=== PATIENT | male | born 1955 | race Caucasian/White ===

== ENCOUNTER 2018-09-07 17:37 | Inpatient (IN) | payer MEDICARE, MEDICAID ==
--- NOTE | 2018-09-07 18:22 | ED Physician Chart ---
ED Chief Complaint/HPI - Patient Information Date Seen:: 09/07/18 Time Seen:: 18:00 Chief Complaint:: Abdominal pain. History of Present Illness:: Pt came in by private auto because of onset of abdominal pain since about 0430 today. Pain is characterized as sharp, intermittent, located at R flank with radiation to R groin. No gross hematuria, dysuria, urinary frequency and urgency. Pain can be improved with urination. No known aggravating factor. No fever. No N//V/D. Last BM at about 3 pm today that was normal in color/ consistency. No hematochezia or melena. Allergies:: Allergies Allergy/AdvReac Type Severity Reaction Status Date / Time No Known Allergies Allergy Verified 09/07/18 17:48 Vitals:: Vital Signs - 8 hr 09/07/18 17:37 Temp 99.5 F HR 95 RR 16 BP 123/69 O2 Sat % 98 Historian:: Patient Family MD/PCP:: Dr. Hidalgo. LMP:: N/A Review:: Nurse's Note Reviewed ED Review of Systems - Review of Systems General/Constitutional: No fever, No chills, No weakness, No edema, No loss of appetite Skin: No skin lesions, No rash, No bruising Head: No headache, No light-headedness Eyes: No loss of vision, No pain ENT: No earache, No nasal drainage, No sore throat Neck: No neck pain, No swelling, No thyromegaly, No stiffness, No mass noted Cardio Vascular: No chest pain Pulmonary: No SOB, No cough, No wheezing GI: No nausea, No vomiting, No diarrhea, Pain, No melena, No hematochezia, No hematemesis G/U: No dysuria, No frequency, No hematuria Musculoskeletal: No bone or joint pain, No back pain Endocrine: No polyuria, No polydipsia Psychiatric: No prior psych history Hematopoietic: No bruising, No lymphadenopathy Neurological: No syncope, No focal symptoms, No weakness, No paresthesia, No headache, No confusion ED Past Medical History - Past Medical History Past Medical History: HTN Family History: Diabetes Melitus (in mother), Cancer (in father) Social History: Smoker (Pt has been informed about health risks associated with tobacco use and has been advised to stop. Pt has been encouraged to enroll in a smoking cessation program. Pt acknowledges understanding.), Alcohol (occasional) , Illicit Drug Use (occasional marijuana use.), , Other (lives with his friend.) Employment:: Retired. Surgical History: other (Surgical repair for right radial fracture in '08) Medication: Reviewed Family Medical History - Family Member Mother History Unknown: Yes ED Physical Exam - Physical Examination General/Constitutional: Awake, Well-developed, well-nourished (male), Alert, No distress, Non-toxic appearing, Ambulatory Other Gen/Cons comments:: Breathes comfortably, speaks clearly, and interacts appropriately. Head: Atraumatic Eyes: Lids, conjuctiva normal, PERRL, EOMI Skin: No ecchymosis, Well hydrated, No lymphadenopathy ENMT: External ears, nose nl, Nasal exam nl, Oropharynx nl Neck: Nontender, Full ROM w/o pain, No nuchal rigidity, No mass Respiratory: Nl effort/Exclusion, Clear to Auscultation, No Wheeze/Rhonchi/Rales Cardio Vascular: No murmur, gallop, rubs, Carotid/Femoral/Distal pulses equal bilaterally GI: No organomegaly, No hernia, Normal BS's, Nondistended, No mass/bruits, No McBurney tenderness Other GI comments:: Vague discomfort at R flank. : No CVA tenderness Extremities: No edema Neuro/Psych: Alert/oriented (oriented x 3), Judgement/insight normal, Mood normal, Normal gait, No focal deficits ED Labs/Radiology/EKG Results - Lab Results Results: Laboratory Results - last 24 hr 09/07/18 09/07/18 09/07/18 18:50 18:50 18:50 WBC 16.8 H RBC 4.57 Hgb 13.5 Hct 40.7 L MCV 89.0 MCH 29.5 MCHC Differential 33.2 RDW 13.2 Plt Count 339 MPV 6.5 Add Manual Diff YES Band Neutrophils % 0 Neutrophils (Manual) 89 H Lymphocytes 6 L Monocytes 5 Eosinophils 0 Basophils 0 Platelet Estimate ADEQUATE PT 11.5 INR 1.12 PTT (Actin FS) 32.0 Sodium 137 Potassium 4.0 Chloride 100 Carbon Dioxide 29.7 Anion Gap 11.3 BUN 21 Creatinine 1.1 Est GFR ( Amer) > 60.0 Est GFR (Non-Af Amer) > 60.0 BUN/Creatinine Ratio 19.1 Glucose 132 H Calcium 9.0 Total Bilirubin 0.8 AST 11 L ALT 11 Alkaline Phosphatase 57 Total Protein 6.6 Albumin 3.6 L Globulin 3.0 Albumin/Globulin Ratio 1.2 Amylase 53 Lipase 5 L Laboratory Last Values WBC 16.8 Th/cmm (4.8-10.8) H 09/07/18 18:50 RBC 4.57 Mil/cmm (3.80-5.80) 09/07/18 18:50 Hgb 13.5 gm/dL (12-16) 09/07/18 18:50 Hct 40.7 % (41.0-60) L 09/07/18 18:50 MCV 89.0 fl (80-99) 09/07/18 18:50 MCH 29.5 pg (27.0-31.0) 09/07/18 18:50 MCHC Differential 33.2 pg (28.0-36.0) 09/07/18 18:50 RDW 13.2 % (11.5-20.0) 09/07/18 18:50 Plt Count 339 Th/cmm (150-400) 09/07/18 18:50 MPV 6.5 fl 09/07/18 18:50 Add Manual Diff YES 09/07/18 18:50 Band Neutrophils % 0 % (0-10) 09/07/18 18:50 Neutrophils (Manual) 89 % (40-80) H 09/07/18 18:50 Lymphocytes 6 % (20-50) L 09/07/18 18:50 Monocytes 5 % (2-10) 09/07/18 18:50 Eosinophils 0 % (0-5) 09/07/18 18:50 Basophils 0 % (0-3) 09/07/18 18:50 Platelet Estimate ADEQUATE (NORMAL) 09/07/18 18:50 PT 11.5 SECONDS (9.5-11.5) 09/07/18 18:50 INR 1.12 (0.5-1.4) 09/07/18 18:50 PTT (Actin FS) 32.0 SECONDS (26.0-38.0) 09/07/18 18:50 Sodium 137 mEq/L (136-145) 09/07/18 18:50 Potassium 4.0 mEq/L (3.5-5.1) 09/07/18 18:50 Chloride 100 mEq/L (98-107) 09/07/18 18:50 Carbon Dioxide 29.7 mEq/L (21.0-31.0) 09/07/18 18:50 Anion Gap 11.3 (7.0-16.0) 09/07/18 18:50 BUN 21 mg/dL (7-25) 09/07/18 18:50 Creatinine 1.1 mg/dL (0.7-1.3) 09/07/18 18:50 Est GFR ( Amer) > 60.0 ml/min (>90) 09/07/18 18:50 Est GFR (Non-Af Amer) > 60.0 ml/min 09/07/18 18:50 BUN/Creatinine Ratio 19.1 09/07/18 18:50 Glucose 132 mg/dL (70-105) H 09/07/18 18:50 Whole Bld Lactic Acid 1.03 mmol/L (0.60-1.99) 09/07/18 18:50 Calcium 9.0 mg/dL (8.6-10.3) 09/07/18 18:50 Total Bilirubin 0.8 mg/dL (0.3-1.0) 09/07/18 18:50 AST 11 U/L (13-39) L 09/07/18 18:50 ALT 11 U/L (7-52) 09/07/18 18:50 Alkaline Phosphatase 57 U/L (34-104) 09/07/18 18:50 Total Protein 6.6 gm/dL (6.0-8.3) 09/07/18 18:50 Albumin 3.6 gm/dL (4.2-5.5) L 09/07/18 18:50 Globulin 3.0 gm/dL 09/07/18 18:50 Albumin/Globulin Ratio 1.2 (1.0-1.8) 09/07/18 18:50 Amylase 53 U/L (29-103) 09/07/18 18:50 Lipase 5 U/L (11-82) L 09/07/18 18:50 Urine Source CLEAN C 09/07/18 18:13 Urine Color YELLOW 09/07/18 18:13 Urine Clarity CLOUDY (CLEAR) 09/07/18 18:13 Urine pH 6.0 (4.6 - 8.0) 09/07/18 18:13 Ur Specific [place] 1.010 (1.005-1.030) 09/07/18 18:13 Urine Protein 30 mg/dL (NEGATIVE) H 09/07/18 18:13 Urine Glucose (UA) NEGATIVE mg/dL (NEGATIVE) 09/07/18 18:13 Urine Ketones NEGATIVE mg/dL (NEGATIVE) 09/07/18 18:13 Urine Blood MODERATE (NEGATIVE) H 09/07/18 18:13 Urine Nitrate POSITIVE (NEGATIVE) H 09/07/18 18:13 Urine Bilirubin NEGATIVE (NEGATIVE) 09/07/18 18:13 Urine Urobilinogen 0.2 E.U./dL (0.2 - 1.0) 09/07/18 18:13 Ur Leukocyte Esterase LARGE (NEGATIVE) H 09/07/18 18:13 Urine RBC 0-2 /hpf (0-5) H 09/07/18 18:13 Urine WBC 25-50 /hpf (0-5) H 09/07/18 18:13 Ur Epithelial Cells NONE SEEN /lpf (FEW) 09/07/18 18:13 Urine Bacteria MODERATE /hpf (NONE SEEN) H 09/07/18 18:13 Pending lab results: blood culture, urine culture. - Radiology Results Results: CT of abdomen/pelvis: Limited Exam due to absence of bowel contrast and paucity of intra-abdominal fat. Poor deliniation of bowel wall margins. Moderately distended stool-filled colon. Suggestion small amount of fluid RUQ adjuacent to hepatic flexure. Etiology uncertain. Abnormal changes with haziness right perinephric region. Inflammatory change cannot be r/o. Need clinical correlation. Diverticulosis. Urinary bladder wall thickening. ?cystitis. Marked volume loss visualized right hemithorax. Need correlation with CXR and preferably prior studies. ASVD. Degenerative changes spine. Official report per Dr. Bernardo Stanley, radiologist. ED Septic Shock - . Is Septic Shock (SBP<90, OR Lactate>4 mmol\L) present?: No - <6hrs of presentation: Vital Signs: Vital Signs - 8 hr 09/07/18 17:37 Temp 99.5 F HR 95 RR 16 BP 123/69 O2 Sat % 98 ED Reassessment (Disposition) - Reassessment Reassessment:: 1850 Pt has been repeatedly evaluated. Pain medication was offered, but pt declined. Pt states that his abdominal discomfort is tolerable. 2030 Pt remains stable. Available lab and CT findings have been reviewed with pt. Management plan has been discussed. 2125 Dr. Sethi contacted this ER and has decided to admit pt to [facility] under his care. Reassessment Condition:: Improved - Diagnosis Diagnosis:: Urinary tract infection with leukocytosis. Mild hyperglycemia. - Patient Disposition Admitting Medical Physician:: Bismark Sethi Time:: 21:25 Condition at Disposition:: Stable
[2018-09-07 18:54] LABS: HEMATOCRIT 40.7 % (41.0-60); HEMOGLOBIN 13.5 gm/dL (12-16); MEAN CORPUSCULAR HEMOGLOBIN 29.5 pg (27.0-31.0); MEAN CORPUSCULAR HGB CONC 33.2 pg (28.0-36.0); MEAN PLATELET VOLUME 6.5 fl; PLATELET COUNT 339 Th/cmm (150-400); RED BLOOD COUNT 4.57 Mil/cmm (3.80-5.80); RED CELL DISTRIBUTION WIDTH 13.2 % (11.5-20.0)
[2018-09-07 19:04] LABS: INR 1.12 (0.5-1.4); PROTHROMBIN TIME (TEST) 11.5 SECONDS (9.5-11.5); WHITE BLOOD COUNT 16.8 Th/cmm (4.8-10.8)
[2018-09-07 19:08] LABS: ALB/GLOB RATIO 1.2 (1.0-1.8); ALBUMIN 3.6 gm/dL (4.2-5.5); ALKALINE PHOSPHATASE 57 U/L (34-104); AMYLASE SERUM 53 U/L (29-103); ANION GAP 11.3 (7.0-16.0); BILIRUBIN,TOTAL 0.8 mg/dL (0.3-1.0); BUN - UREA NITROGEN 21 mg/dL (7-25); CARBON DIOXIDE 29.7 mEq/L (21.0-31.0); CHLORIDE 100 mEq/L (98-107); CREATININE - SERUM 1.1 mg/dL (0.7-1.3); GFR AFRICAN-AMERICAN > 60.0 ml/min (>90); GFR NON AFRICAN-AMERICAN > 60.0 ml/min; GLUCOSE 132 mg/dL (70-105); LIPASE 5 U/L (11-82); SGOT 11 U/L (13-39); SGPT/ALT 11 U/L (7-52); SODIUM SERUM 137 mEq/L (136-145); TOTAL PROTEIN,SERUM 6.6 gm/dL (6.0-8.3)
[2018-09-07 19:14] LABS: BAND NEUTROPHILE 0 % (0-10); BASOPHIL 0 % (0-3); EOSINOPHIL 0 % (0-5); LYMPHOCYTE 6 % (20-50); MONOCYTE 5 % (2-10); NEUTROPHILS 89 % (40-80); PLATELET ESTIMATE ADEQUATE (NORMAL)
[2018-09-07 19:24] LABS: URINE SOURCE CLEAN C
[2018-09-07 19:32] LABS: URINE CLARITY CLOUDY (CLEAR); URINE COLOR YELLOW; URINE MICROSCOPIC INDICATED? YES
[2018-09-07 19:33] LABS: URINE BILIRUBIN NEGATIVE (NEGATIVE); URINE BLOOD MODERATE (NEGATIVE); URINE GLUCOSE (UA) NEGATIVE (NEGATIVE); URINE KETONE NEGATIVE (NEGATIVE); URINE PROTEIN 30 mg/dL (NEGATIVE)
[2018-09-07 19:34] LABS: URINE LEUKOCYTE ESTERASE LARGE (NEGATIVE); URINE NITRATE POSITIVE (NEGATIVE); URINE UROBILINOGEN 0.2 E.U./dL (0.2 - 1.0)
[2018-09-07 19:39] LABS: URINE RBC 0-2 /hpf (0-5)
[2018-09-07 19:42] LABS: URINE BACTERIA MODERATE /hpf (NONE SEEN); URINE EPITHELIAL CELLS NONE SEEN /lpf (FEW); URINE WBC 25-50 /hpf (0-5)
[2018-09-07] MEDS ORDERED: Levofloxacin 500mg/100mL 500 MG/100 ML BAG IV ONE ×2 (20:15→20:23)
[2018-09-07] MEDS ORDERED: Maalox 30 mL Cup PO PRN (21:21)
[2018-09-07] MEDS ORDERED: Albuterol Nebulizer 2.5mg/3mL HHN PRN (21:21)
[2018-09-07] MEDS ORDERED: Morphine Sulfate 2 mg/mL 1mL Syr IVP PRN (21:21)
[2018-09-07] MEDS ORDERED: Ipratropium Neb 0.5 mg/2.5 mL UD HHN PRN (21:21)
--- NOTE | 2018-09-07 22:12 | History & Physical ---
ADMIT DATE: 09/07/2018 CHIEF COMPLAINT: Abdominal pain. HISTORY OF PRESENT ILLNESS: This is a 63-year-old male with significant past medical history, came into the ER secondary to sharp, intermittent right-sided flank pain with radiation to the right groin. The patient was evaluated in the ER and found to have UTI. The patient denies chest pain or shortness of breath. The patient is noted to have elevated white count. PAST MEDICAL HISTORY: As mentioned in history present illness. PAST SURGICAL HISTORY: Denies surgeries in the past. MEDICATIONS: None. ALLERGIES: No known drug allergies. SOCIAL HISTORY: Avid smoker and nondrinker, uses marijuana. single , one son FAMILY HISTORY: Denies diabetes or coronary artery disease. REVIEW OF SYSTEMS: GENERAL: Complains not feeling well. HEENT: No blurred vision or pain. LUNGS: No diagnosis of COPD or asthma. HEART: Denies hypertension or coronary artery disease. ABDOMEN: As mentioned above. GENITOURINARY: Increased frequency. NEUROLOGIC: No headache, seizure, or syncope. PSYCHIATRIC: Denies. PHYSICAL EXAMINATION: VITAL SIGNS: Blood pressure is 123/69, respirations 16, pulse is 95, and temperature is 99.5. GENERAL: The patient is an elderly male, appears stated age. NECK: Supple. No mass. LUNGS: Equal breath sounds; otherwise, clear to auscultation. HEART: Regular rate and rhythm without appreciable murmur. ABDOMEN: Soft. Slight tender on palpation. EXTREMITIES: Positive excoriation. NEUROLOGIC: Limited. LABORATORY DATA: WBC is 16.8, hemoglobin is 13, platelets 329, and neutrophils 89%. Sodium is 135, potassium is 4.0, BUN is ____, creatine is 1.1, and blood sugar is 132. Albumin is 3.6. UA: 50 wbc, moderate bacteria, positive nitrite, moderate blood, protein 30, and negative for glucose. ASSESSMENT AND PLAN: Urinary tract infection, leukocytosis, possible sepsis, hyperglycemia, and mild protein-calorie malnutrition. We will continue the patient with IV hydration ____. We will put the patient on ____. We will Place the patient on Maxipime. We will place the patient on DVT and gastritis prophylaxis. Continue anticoagulation medication and adequate pain medication. We will continue monitoring the patient closely. JOB# [id number] [facility]
[2018-09-07] MEDS: D5-0.45NS 1,000 ML IV SCH (22:17)
[2018-09-07 23:00] VITALS: BP 123/54
[2018-09-08 05:58] LABS: % BASOPHILS 0.5 % (0.0-2.0); % EOSINOPHILS 0.4 % (0.0-5.0); % LYMPHOCYTES 9.5 % (20.0-50.0); % MONOCYTES 5.1 % (2.0-10.0); % NEUTROPHILS 84.5 % (40.0-80.0); BASOPHILE ABSOLUTE 0.1 Th/cumm (0-0.2); EOSINOPHILE ABSOLUTE 0.1 Th/cmm (0.1-0.4); HEMATOCRIT 40.1 % (41.0-60); HEMOGLOBIN 13.4 gm/dL (12-16); LYMPHOCYTE ABSOLUTE 1.3 Th/cmm (1.5-3.0); MEAN CELL VOLUME 88.7 fl (80-99); MEAN CORPUSCULAR HEMOGLOBIN 29.6 pg (27.0-31.0); MEAN CORPUSCULAR HGB CONC 33.4 pg (28.0-36.0); MEAN PLATELET VOLUME 7.5 fl; MONOCYTE ABSOLUTE 0.7 Th/cmm (0.3-1.0); NEUTROPHILE ABSOLUTE 11.6 Th/cmm (1.8-8.0); PLATELET COUNT 274 Th/cmm (150-400); RED BLOOD COUNT 4.52 Mil/cmm (3.80-5.80); RED CELL DISTRIBUTION WIDTH 13.3 % (11.5-20.0); WHITE BLOOD COUNT 13.8 Th/cmm (4.8-10.8)
[2018-09-08 06:16] LABS: ANION GAP 11.6 (7.0-16.0); BUN - UREA NITROGEN 21 mg/dL (7-25); CALCIUM SERUM 8.7 mg/dL (8.6-10.3); CARBON DIOXIDE 28.1 mEq/L (21.0-31.0); CHLORIDE 100 mEq/L (98-107); CREATININE - SERUM 1.1 mg/dL (0.7-1.3); GFR AFRICAN-AMERICAN > 60.0 ml/min (>90); GFR NON AFRICAN-AMERICAN > 60.0 ml/min; GLUCOSE 136 mg/dL (70-105); MAGNESIUM 1.8 mg/dL (1.9-2.7); POTASSIUM SERUM 3.7 mEq/L (3.5-5.1); SODIUM SERUM 136 mEq/L (136-145)
[2018-09-08] MEDS: Heparin Sod 5,000Units/ML 5,000 UNITS/ML VIAL SUBQ SCH ×2 (08:27→20:54)
[2018-09-08] MEDS: D5-0.45NS 1,000 ML IV SCH ×2 (08:29→22:31)
--- NOTE | 2018-09-08 09:23 | Diagnostic Imaging Report ---
CT abdomen and pelvis without intravenous contrast Indication: Abdominal pain Comparison: None, Technique: Axial images were obtained from the lung bases to the bilateral proximal femurs without IV contrast. Coronal reconstructions were made. total DLP: 334, CTDI7 FINDINGS: Exam is limited due to lack of IV and oral contrast and lack of intra-abdominal body fat. There is hyperexpansion of the left lung base and there is also rightward mediastinal shift including rightward shift of the heart. There is nodularity along the right atrial border likely a vessel. Atelectatic changes of the lung bases are noted. Trace right pleural fluid is noted. Evaluation of the solid organs is limited due to lack of IV contrast. There is hepatomegaly. No evidence of focal hepatic lesions. No focal splenic lesions. Limited assessment of the pancreas demonstrates calcifications in this region possibly due to old inflammatory process or adjacent splenic artery calcifications. No focal adrenal images. No evidence hydronephrosis of focal renal lesions. Right perinephric inflammatory changes are noted. There is urinary bladder wall thickening. Prostate gland calcifications are noted. Diverticulosis is noted without diverticulitis. There is significant amount of stool throughout the colon. There is small amount of free fluid inflammatory changes are also seen extending from the right perihepatic region inferiorly to the right lower quadrant. The appendix is not identified. Atherosclerosis is noted with tortuous aorta. Degenerative changes spine and pelvis are noted with scoliosis. IMPRESSION: Limited exam due to lack of IV and oral contrast and lack of intra-abdominal body fat. Copious stool throughout the colon, correlate clinically for constipation. Diverticulosis without definite diverticulitis. Small amount of fluid extending from the perihepatic region to the right lower quadrant. Inflammatory changes seen in this region also. Significance and origin of this finding is uncertain. Clinical correlation and follow-up recommended Appendix is not visualized. Mild right-sided perinephric inflammatory changes. Correlate with UA levels. Urinary bladder wall thickening likely due to infectious inflammatory process/cystitis. Volume loss of the right lung with rightward mediastinal shift. There is hyperexpansion left lung. Clinical correlation and correlation with old exams recommended. Small right effusion with minimal right basal passive atelectatic changes. Mild hepatomegaly. Atherosclerosis. Degenerative changes.
[2018-09-08] MEDS ORDERED: IOHEXOL 300mgI/mL 100 ML VIAL PO ONE (11:44)
--- NOTE | 2018-09-08 11:47 | Internal Medicine Prog Note ---
Internal Medicine Subjective - Subjective Patient seen and examined:: with staff, chart reviewed Patient is:: awake, verbal, interactive, in bed Patient Complaints of:: congestion, pain with urination, unable to sleep Per staff patient has:: no adverse event, no episodes of fall, poor appetite, tolerating meds Internal Medicine Objective - Results Result Diagrams: 09/08/18 05:00 09/08/18 05:00 Recent Labs: Laboratory Last Values WBC 13.8 Th/cmm (4.8-10.8) H 09/08/18 05:00 RBC 4.52 Mil/cmm (3.80-5.80) 09/08/18 05:00 Hgb 13.4 gm/dL (12-16) 09/08/18 05:00 Hct 40.1 % (41.0-60) L 09/08/18 05:00 MCV 88.7 fl (80-99) 09/08/18 05:00 MCH 29.6 pg (27.0-31.0) 09/08/18 05:00 MCHC Differential 33.4 pg (28.0-36.0) 09/08/18 05:00 RDW 13.3 % (11.5-20.0) 09/08/18 05:00 Plt Count 274 Th/cmm (150-400) 09/08/18 05:00 MPV 7.5 fl 09/08/18 05:00 Add Manual Diff YES 09/07/18 18:50 Neutrophils % 84.5 % (40.0-80.0) H 09/08/18 05:00 Band Neutrophils % 0 % (0-10) 09/07/18 18:50 Lymphocytes % 9.5 % (20.0-50.0) L 09/08/18 05:00 Monocytes % 5.1 % (2.0-10.0) 09/08/18 05:00 Eosinophils % 0.4 % (0.0-5.0) 09/08/18 05:00 Basophils % 0.5 % (0.0-2.0) 09/08/18 05:00 Neutrophils (Manual) 89 % (40-80) H 09/07/18 18:50 Lymphocytes 6 % (20-50) L 09/07/18 18:50 Monocytes 5 % (2-10) 09/07/18 18:50 Eosinophils 0 % (0-5) 09/07/18 18:50 Basophils 0 % (0-3) 09/07/18 18:50 Platelet Estimate ADEQUATE (NORMAL) 09/07/18 18:50 PT 11.5 SECONDS (9.5-11.5) 09/07/18 18:50 INR 1.12 (0.5-1.4) 09/07/18 18:50 PTT (Actin FS) 32.0 SECONDS (26.0-38.0) 09/07/18 18:50 Sodium 136 mEq/L (136-145) 09/08/18 05:00 Potassium 3.7 mEq/L (3.5-5.1) 09/08/18 05:00 Chloride 100 mEq/L (98-107) 09/08/18 05:00 Carbon Dioxide 28.1 mEq/L (21.0-31.0) 09/08/18 05:00 Anion Gap 11.6 (7.0-16.0) 09/08/18 05:00 BUN 21 mg/dL (7-25) 09/08/18 05:00 Creatinine 1.1 mg/dL (0.7-1.3) 09/08/18 05:00 Est GFR ( Amer) > 60.0 ml/min (>90) 09/08/18 05:00 Est GFR (Non-Af Amer) > 60.0 ml/min 09/08/18 05:00 BUN/Creatinine Ratio 19.1 09/08/18 05:00 Glucose 136 mg/dL (70-105) H 09/08/18 05:00 Whole Bld Lactic Acid 1.03 mmol/L (0.60-1.99) 09/07/18 18:50 Calcium 8.7 mg/dL (8.6-10.3) 09/08/18 05:00 Magnesium 1.8 mg/dL (1.9-2.7) L 09/08/18 05:00 Total Bilirubin 0.8 mg/dL (0.3-1.0) 09/07/18 18:50 AST 11 U/L (13-39) L 09/07/18 18:50 ALT 11 U/L (7-52) 09/07/18 18:50 Alkaline Phosphatase 57 U/L (34-104) 09/07/18 18:50 B-Natriuretic Peptide 127.0 pg/mL (5.0-100.0) H 09/08/18 05:00 Total Protein 6.6 gm/dL (6.0-8.3) 09/07/18 18:50 Albumin 3.6 gm/dL (4.2-5.5) L 09/07/18 18:50 Globulin 3.0 gm/dL 09/07/18 18:50 Albumin/Globulin Ratio 1.2 (1.0-1.8) 09/07/18 18:50 Amylase 53 U/L (29-103) 09/07/18 18:50 Lipase 5 U/L (11-82) L 09/07/18 18:50 TSH 1.62 uIU/ml (0.34-5.60) 09/08/18 05:00 Urine Source CLEAN C 09/07/18 18:13 Urine Color YELLOW 09/07/18 18:13 Urine Clarity CLOUDY (CLEAR) 09/07/18 18:13 Urine pH 6.0 (4.6 - 8.0) 09/07/18 18:13 Ur Specific [place] 1.010 (1.005-1.030) 09/07/18 18:13 Urine Protein 30 mg/dL (NEGATIVE) H 09/07/18 18:13 Urine Glucose (UA) NEGATIVE mg/dL (NEGATIVE) 09/07/18 18:13 Urine Ketones NEGATIVE mg/dL (NEGATIVE) 09/07/18 18:13 Urine Blood MODERATE (NEGATIVE) H 09/07/18 18:13 Urine Nitrate POSITIVE (NEGATIVE) H 09/07/18 18:13 Urine Bilirubin NEGATIVE (NEGATIVE) 09/07/18 18:13 Urine Urobilinogen 0.2 E.U./dL (0.2 - 1.0) 09/07/18 18:13 Ur Leukocyte Esterase LARGE (NEGATIVE) H 09/07/18 18:13 Urine RBC 0-2 /hpf (0-5) H 09/07/18 18:13 Urine WBC 25-50 /hpf (0-5) H 09/07/18 18:13 Ur Epithelial Cells NONE SEEN /lpf (FEW) 09/07/18 18:13 Urine Bacteria MODERATE /hpf (NONE SEEN) H 09/07/18 18:13 - Physical Exam Vitals and I&O: Vital Signs Temp 98.2 F 09/08/18 08:00 Pulse 72 09/08/18 08:00 Resp 18 09/08/18 08:00 BP 110/56 09/08/18 08:00 Pulse Ox 95 09/08/18 08:00 Intake & Output 09/07/18 09/08/18 09/08/18 18:59 06:59 18:59 Intake Total 390 1000 Balance 390 1000 Weight (lbs) 65.771 kg 78.018 kg Intake: Intake, IV Amount 150 1000 Cefepime 1 gm In Dextrose 50 5% 50 ml @ 100 mls/hr IV Q12H [facility] Rx#:[id number] D5-0.45NS 1,000 ml @ 100 1000 mls/hr IV .Q10H [facility] Rx#: [id number] Levofloxacin 500mg/100mL 100 500 mg In 100 ml @ 100 mls/hr IV X1 ONE Rx#: [id number] Oral 240 Other: # Voids 2 # Bowel Movements 0 Weight Source Estimated Bedscale Active Medications: Current Medications Acetaminophen (Tylenol) 650 mg PO Q4H PRN PRN Reason: Pain Or Fever above 101 Stop: 11/06/18 21:20 Al Hydrox/Mg Hydrox/Simethicone (Maalox) 30 ml PO Q6H PRN PRN Reason: Dyspepsia Stop: 11/06/18 21:20 Albuterol Sulfate (Albuterol 2.5mg/3ml Neb Ud) 2.5 mg HHN Q2HRT PRN PRN Reason: Shortness of Breath or Wheeze Stop: 11/06/18 21:20 Heparin Sodium (Porcine) (Heparin) 5,000 units SUBQ Q12HR [facility] Stop: 11/07/18 08:59 Last Admin: 09/08/18 08:27 Dose: 5,000 units Cefepime HCl 1 gm/ Dextrose 50 mls @ 100 mls/hr IV Q12H [facility] Stop: 11/06/18 21:29 Last Admin: 09/08/18 09:37 Dose: 100 mls/hr Dextrose/Sodium Chloride (D5-0.45ns) 1,000 mls @ 100 mls/hr IV .Q10H [facility] Stop: 11/06/18 21:29 Last Admin: 09/08/18 08:29 Dose: 100 mls/hr Magnesium Sulfate (Magnesium Sulfate Premix) 2 gm in 50 mls @ 25 mls/hr IV X1 ONE Stop: 09/08/18 13:59 Ipratropium [place] (Atrovent Neb 0.5mg/2.5ml) 0.5 mg HHN Q2HRT PRN PRN Reason: Shortness of Breath or Wheeze Stop: 11/06/18 21:20 Morphine Sulfate (Morphine) 2 mg IVP Q4H PRN PRN Reason: Pain (Severe) Stop: 11/06/18 21:20 Ondansetron HCl (Zofran) 4 mg IV Q8H PRN PRN Reason: Nausea / Vomiting Stop: 11/06/18 21:20 Zolpidem Tartrate (Ambien) 10 mg PO HS PRN PRN Reason: Insomnia Stop: 11/06/18 21:20 General: alert HEENT: NC/AT, PERRLA, EOMI Neck: Supple, No JVD Lungs: rales, ronchi Cardiovascular: RRR, Normal S1, Normal S2, without murmur Abdomen: soft, non-tender, non-distended, positive bowel sound Extremities: clear Neurological: no change Internal Medicine Assmt/Plan - Assessment Assessment: ASSESSMENT AND PLAN: Urinary tract infection, leukocytosis, possible sepsis, hyperglycemia, and mild protein-calorie malnutrition. - Plan Plan: PLAN: We will continue the patient with IV hydration We will put the patient on _iv abx___. We will Place the patient on Maxipime. We will place the patient on DVT and gastritis prophylaxis. Continue anticoagulation medication and adequate pain medication. We will continue monitoring the patient closely.will review ct chest
[2018-09-08] MEDS ORDERED: Mag Sulfate 2gm/50mL Premix 2 GM/50 ML BAG IV ONE (12:00)
[2018-09-09 06:33] LABS: % EOSINOPHILS 4.1 % (0.0-5.0); % MONOCYTES 7.6 % (2.0-10.0); % NEUTROPHILS 64.3 % (40.0-80.0); BASOPHILE ABSOLUTE 0.1 Th/cumm (0-0.2); EOSINOPHILE ABSOLUTE 0.3 Th/cmm (0.1-0.4); HEMATOCRIT 42.1 % (41.0-60); HEMOGLOBIN 13.9 gm/dL (12-16); LYMPHOCYTE ABSOLUTE 1.8 Th/cmm (1.5-3.0); MEAN CELL VOLUME 90.1 fl (80-99); MEAN CORPUSCULAR HEMOGLOBIN 29.7 pg (27.0-31.0); MEAN PLATELET VOLUME 7.1 fl; MONOCYTE ABSOLUTE 0.6 Th/cmm (0.3-1.0); NEUTROPHILE ABSOLUTE 5.2 Th/cmm (1.8-8.0); PLATELET COUNT 323 Th/cmm (150-400); RED BLOOD COUNT 4.67 Mil/cmm (3.80-5.80); RED CELL DISTRIBUTION WIDTH 13.3 % (11.5-20.0)
[2018-09-09 06:44] LABS: ANION GAP 10.4 (7.0-16.0); BUN - UREA NITROGEN 17 mg/dL (7-25); CALCIUM SERUM 8.9 mg/dL (8.6-10.3); CARBON DIOXIDE 28.4 mEq/L (21.0-31.0); CHLORIDE 102 mEq/L (98-107); CREATININE - SERUM 1.1 mg/dL (0.7-1.3); GFR AFRICAN-AMERICAN > 60.0 ml/min (>90); GFR NON AFRICAN-AMERICAN > 60.0 ml/min; GLUCOSE 136 mg/dL (70-105); POTASSIUM SERUM 3.8 mEq/L (3.5-5.1); SODIUM SERUM 137 mEq/L (136-145)
[2018-09-09 08:11] LABS: HEP A AB IGM Negative (Negative); HEP B CORE IGM Negative (Negative); HEP B SURFACE AG QL Negative (Negative); HEP C ANTIBODY 0.2 s/co ratio (0.0-0.9)
[2018-09-09] MEDS: D5-0.45NS 1,000 ML IV SCH (08:41)
[2018-09-09] MEDS: Heparin Sod 5,000Units/ML 5,000 UNITS/ML VIAL SUBQ SCH (08:43)
--- NOTE | 2018-09-09 08:58 | Diagnostic Imaging Report ---
CT Chest with IV contrast HISTORY: Mass, pain COMPARISON: CT abdomen and pelvis on 09/07/2018 Technique: Axial images were obtained from the base of the neck to the upper abdomen following administration of IV contrast. Coronal reconstructions were made. 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 There is no evidence of mediastinal lymphadenopathy. Heart size is normal. Mild atherosclerosis is noted. No pericardial effusion. No evidence of an aneurysm. Evaluation lungs demonstrates mild chronic lung changes. Hyperexpanded left lung is noted. No focal consolidation or pleural effusions. A few tiny ground glass densities in the right upper lobe are noted. Minimal bibasilar passive atelectatic and consolidative changes are noted. The Upper abdomen demonstrates mildly prominent liver. Degenerative changes of the spine are noted. 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 Mild chronic lung changes with possible mild COPD. Faint groundglass densities of right upper lung are noted. Faint infiltrate/pneumonia cannot be excluded. Minimal bibasal passive atelectatic/consolidative changes are also noted. Mild atherosclerosis Mild hepatomegaly.
--- NOTE | 2018-09-09 12:20 | Internal Medicine Prog Note ---
Internal Medicine Subjective - Subjective Patient seen and examined:: with staff, chart reviewed Patient is:: awake, verbal, interactive, in bed Patient Complaints of:: congestion, vomitting, pain with urination, unable to sleep Per staff patient has:: no adverse event, no episodes of fall, poor appetite, tolerating meds Internal Medicine Objective - Results Result Diagrams: 09/09/18 05:45 09/09/18 05:45 Recent Labs: Laboratory Last Values WBC 8.0 Th/cmm (4.8-10.8) 09/09/18 05:45 RBC 4.67 Mil/cmm (3.80-5.80) 09/09/18 05:45 Hgb 13.9 gm/dL (12-16) 09/09/18 05:45 Hct 42.1 % (41.0-60) 09/09/18 05:45 MCV 90.1 fl (80-99) 09/09/18 05:45 MCH 29.7 pg (27.0-31.0) 09/09/18 05:45 MCHC Differential 33.0 pg (28.0-36.0) 09/09/18 05:45 RDW 13.3 % (11.5-20.0) 09/09/18 05:45 Plt Count 323 Th/cmm (150-400) 09/09/18 05:45 MPV 7.1 fl 09/09/18 05:45 Add Manual Diff YES 09/07/18 18:50 Neutrophils % 64.3 % (40.0-80.0) 09/09/18 05:45 Band Neutrophils % 0 % (0-10) 09/07/18 18:50 Lymphocytes % 23.0 % (20.0-50.0) 09/09/18 05:45 Monocytes % 7.6 % (2.0-10.0) 09/09/18 05:45 Eosinophils % 4.1 % (0.0-5.0) 09/09/18 05:45 Basophils % 1.0 % (0.0-2.0) 09/09/18 05:45 Neutrophils (Manual) 89 % (40-80) H 09/07/18 18:50 Lymphocytes 6 % (20-50) L 09/07/18 18:50 Monocytes 5 % (2-10) 09/07/18 18:50 Eosinophils 0 % (0-5) 09/07/18 18:50 Basophils 0 % (0-3) 09/07/18 18:50 Platelet Estimate ADEQUATE (NORMAL) 09/07/18 18:50 PT 11.5 SECONDS (9.5-11.5) 09/07/18 18:50 INR 1.12 (0.5-1.4) 09/07/18 18:50 PTT (Actin FS) 32.0 SECONDS (26.0-38.0) 09/07/18 18:50 Sodium 137 mEq/L (136-145) 09/09/18 05:45 Potassium 3.8 mEq/L (3.5-5.1) 09/09/18 05:45 Chloride 102 mEq/L (98-107) 09/09/18 05:45 Carbon Dioxide 28.4 mEq/L (21.0-31.0) 09/09/18 05:45 Anion Gap 10.4 (7.0-16.0) 09/09/18 05:45 BUN 17 mg/dL (7-25) 09/09/18 05:45 Creatinine 1.1 mg/dL (0.7-1.3) 09/09/18 05:45 Est GFR ( Amer) > 60.0 ml/min (>90) 09/09/18 05:45 Est GFR (Non-Af Amer) > 60.0 ml/min 09/09/18 05:45 BUN/Creatinine Ratio 15.5 09/09/18 05:45 Glucose 136 mg/dL (70-105) H 09/09/18 05:45 Whole Bld Lactic Acid 1.03 mmol/L (0.60-1.99) 09/07/18 18:50 Calcium 8.9 mg/dL (8.6-10.3) 09/09/18 05:45 Magnesium 1.8 mg/dL (1.9-2.7) L 09/08/18 05:00 Total Bilirubin 0.8 mg/dL (0.3-1.0) 09/07/18 18:50 AST 11 U/L (13-39) L 09/07/18 18:50 ALT 11 U/L (7-52) 09/07/18 18:50 Alkaline Phosphatase 57 U/L (34-104) 09/07/18 18:50 B-Natriuretic Peptide 127.0 pg/mL (5.0-100.0) H 09/08/18 05:00 Total Protein 6.6 gm/dL (6.0-8.3) 09/07/18 18:50 Albumin 3.6 gm/dL (4.2-5.5) L 09/07/18 18:50 Globulin 3.0 gm/dL 09/07/18 18:50 Albumin/Globulin Ratio 1.2 (1.0-1.8) 09/07/18 18:50 Amylase 53 U/L (29-103) 09/07/18 18:50 Lipase 5 U/L (11-82) L 09/07/18 18:50 TSH 1.62 uIU/ml (0.34-5.60) 09/08/18 05:00 Urine Source CLEAN C 09/07/18 18:13 Urine Color YELLOW 09/07/18 18:13 Urine Clarity CLOUDY (CLEAR) 09/07/18 18:13 Urine pH 6.0 (4.6 - 8.0) 09/07/18 18:13 Ur Specific [place] 1.010 (1.005-1.030) 09/07/18 18:13 Urine Protein 30 mg/dL (NEGATIVE) H 09/07/18 18:13 Urine Glucose (UA) NEGATIVE mg/dL (NEGATIVE) 09/07/18 18:13 Urine Ketones NEGATIVE mg/dL (NEGATIVE) 09/07/18 18:13 Urine Blood MODERATE (NEGATIVE) H 09/07/18 18:13 Urine Nitrate POSITIVE (NEGATIVE) H 09/07/18 18:13 Urine Bilirubin NEGATIVE (NEGATIVE) 09/07/18 18:13 Urine Urobilinogen 0.2 E.U./dL (0.2 - 1.0) 09/07/18 18:13 Ur Leukocyte Esterase LARGE (NEGATIVE) H 09/07/18 18:13 Urine RBC 0-2 /hpf (0-5) H 09/07/18 18:13 Urine WBC 25-50 /hpf (0-5) H 09/07/18 18:13 Ur Epithelial Cells NONE SEEN /lpf (FEW) 09/07/18 18:13 Urine Bacteria MODERATE /hpf (NONE SEEN) H 09/07/18 18:13 Hepatitis A IgM Ab Negative (Negative) 09/08/18 05:00 Hep Bs Antigen Negative (Negative) 09/08/18 05:00 Hep B Core IgM Ab Negative (Negative) 09/08/18 05:00 Hepatitis C Antibody 0.2 s/co ratio (0.0-0.9) 09/08/18 05:00 - Physical Exam Vitals and I&O: Vital Signs Temp 97.8 F 09/09/18 12:00 Pulse 75 09/09/18 12:00 Resp 18 09/09/18 12:00 BP 102/68 09/09/18 12:00 Pulse Ox 100 09/09/18 12:00 Intake & Output 09/08/18 09/09/18 09/09/18 18:59 06:59 18:59 Intake Total 2455 750 1000 Balance 2455 750 1000 Weight (lbs) 78.018 kg 78.018 kg Intake: Intake, IV Amount 2050 50 1000 Cefepime 1 gm In Dextrose 50 50 5% 50 ml @ 100 mls/hr IV Q12H [facility] Rx#:[id number] D5-0.45NS 1,000 ml @ 100 2000 1000 mls/hr IV .Q10H [facility] Rx#: [id number] Oral 405 700 Other: # Voids 4 5 Weight Source Bedscale Bedscale Active Medications: Current Medications Acetaminophen (Tylenol) 650 mg PO Q4H PRN PRN Reason: Pain Or Fever above 101 Stop: 11/06/18 21:20 Al Hydrox/Mg Hydrox/Simethicone (Maalox) 30 ml PO Q6H PRN PRN Reason: Dyspepsia Stop: 11/06/18 21:20 Albuterol Sulfate (Albuterol 2.5mg/3ml Neb Ud) 2.5 mg HHN Q2HRT PRN PRN Reason: Shortness of Breath or Wheeze Stop: 11/06/18 21:20 Heparin Sodium (Porcine) (Heparin) 5,000 units SUBQ Q12HR [facility] Stop: 11/07/18 08:59 Last Admin: 09/09/18 08:43 Dose: 5,000 units Cefepime HCl 1 gm/ Dextrose 50 mls @ 100 mls/hr IV Q12H [facility] Stop: 11/06/18 21:29 Last Admin: 09/09/18 08:40 Dose: 100 mls/hr Dextrose/Sodium Chloride (D5-0.45ns) 1,000 mls @ 60 mls/hr IV .[id number] [facility] Stop: 11/08/18 12:29 Ipratropium [place] (Atrovent Neb 0.5mg/2.5ml) 0.5 mg HHN Q2HRT PRN PRN Reason: Shortness of Breath or Wheeze Stop: 11/06/18 21:20 Morphine Sulfate (Morphine) 2 mg IVP Q4H PRN PRN Reason: Pain (Severe) Stop: 11/06/18 21:20 Ondansetron HCl (Zofran) 4 mg IV Q8H PRN PRN Reason: Nausea / Vomiting Stop: 11/06/18 21:20 Last Admin: 09/09/18 11:40 Dose: 4 mg Zolpidem Tartrate (Ambien) 10 mg PO HS PRN PRN Reason: Insomnia Stop: 11/06/18 21:20 General: alert HEENT: NC/AT, PERRLA, EOMI Neck: Supple, No JVD Lungs: rales, ronchi Cardiovascular: RRR, Normal S1, Normal S2, without murmur Abdomen: soft, non-tender, non-distended, positive bowel sound Extremities: clear Neurological: no change Internal Medicine Assmt/Plan - Assessment Assessment: ASSESSMENT AND PLAN: Urinary tract infection, leukocytosis, possible sepsis, hyperglycemia, and mild protein-calorie malnutrition. vomitting - Plan Plan: PLAN: We will continue the patient with IV hydration We will put the patient on _iv abx___. We will Place the patient on Maxipime. We will place the patient on DVT and gastritis prophylaxis. Continue anticoagulation medication and adequate pain medication. We will continue monitoring the patient closely.will review ct chest on zofran prn
[2018-09-09] MEDS ORDERED: D5-0.45NS 1,000 ML IV SCH (12:30)
--- NOTE | 2018-09-10 13:57 | Discharge Summary ---
DATE OF DISCHARGE: 09/09/2018 CHIEF COMPLAINT: Abdominal pain. FINAL DIAGNOSES: The patient left AMA, urinary tract infection, leukocytosis, possible sepsis, protein-calorie malnutrition, and hyperglycemia. HISTORY: This is a 63-year-old male with a severe past medical history, came in with sharp right-sided pain. The patient was diagnosed with UTI and admitted for management. HOSPITAL COURSE: The patient was admitted to medical floor. Continue IV hydration, IV antibiotic. Culture were sent. The patient's positive for E. coli, but the patient was adamant that he needed to go home and signed out AMA on 09/09/2018. CONDITION ON DISCHARGED: AMA. DISCHARGE INSTRUCTION: The patient signed out AMA. The patient to follow with his regular physician. [facility]# [id number]
== END 2018-09-09 14:05 | disposition left against medical advice (07) | DRG 872 ==
LOC: ER 17:37 → MSI 21:40
PROVIDERS: ADMIT Internal Medicine; ATTEND Internal Medicine
DX: A41.9 Sepsis, unspecified organism (principal); E44.1 Mild protein-calorie malnutrition; N39.0 Urinary tract infection, site not specified; R73.9 Hyperglycemia, unspecified; I10 Essential (primary) hypertension; F17.210 Nicotine dependence, cigarettes, uncomplicated; Z53.21 Procedure and treatment not carried out due to patient leaving prior to being seen by health care provider; Z68.25 Body mass index [BMI] 25.0-25.9, adult
CPT/HCPCS: 36415-UA; 71260-TC; 80048-TC; 80053-TC; 80074-90; 81001-TC; 82150-TC; 83036-90; 83605; 83690-TC; 83735-TC; 83880-TC; 84443-TC; 85007-TC; 85025-TC; 85610-TC; 87086-90; 94760; 96375; J0692; J1644; J1956; J2405; J3475; Q9967